=== PATIENT | female | born 1955 | race Caucasian/White ===

== ENCOUNTER → 2016-12-10 17:20 | Outpatient (CLI) | payer OTHER ==
[2016-03-14 14:23] VITALS: BMI 34.4
[~2016-12-10 17:20] MED LIST: ASPIRIN EC81 MG PO; CATAPRES0.1 MG; CATAPRES0.1 MG PO; DESERYL100 MG PO; DIOVAN320 MG; DYAZIDE 37.5/251 CAP; FLUTICASONE PRO16 GM; FOLIC ACID1 MG; HYDROCHLOROTHIA25 MG PO; IBUPROFEN800 MG PO; PLAVIX75 MG PO; PRILOSEC20 MG PO; TALWIN NX1 TAB; TENORMIN100 MG PO; TENORMIN50 MG PO; VITAMIN D31000 UNIT PO; ZETIA10 MG PO
== END | disposition home or self-care (01) ==
LOC: D.MAMMO 10:45
DX: Z12.31 Encounter for screening mammogram for malignant neoplasm of breast (principal)

== ENCOUNTER 2017-01-15 09:14 | Outpatient (CLI) | payer OTHER ==
[2016-03-14 14:23] VITALS: BMI 34.4
== END 2017-01-15 09:21 ==
LOC: D.MAMMO 09:14
DX: R92.8 Other abnormal and inconclusive findings on diagnostic imaging of breast (principal)

== ENCOUNTER → 2018-06-20 09:18 | Outpatient (CLI) | payer OTHER ==
[2016-03-14 14:23] VITALS: BMI 34.4
== END | disposition home or self-care (01) ==
LOC: D.MRI 09:18
DX: M75.122 Complete rotator cuff tear or rupture of left shoulder, not specified as traumatic (principal)

== ENCOUNTER 2018-07-07 08:00 | Outpatient (CLI) | payer OTHER ==
[2016-03-14 14:23] VITALS: BMI 34.4
== END 2018-07-07 09:00 | disposition home or self-care (01) ==
LOC: D.MAMMO 08:00
DX: Z12.31 Encounter for screening mammogram for malignant neoplasm of breast (principal)

== ENCOUNTER → 2018-08-08 08:58 | Outpatient (CLI) | payer OTHER ==
[2016-03-14 14:23] VITALS: BMI 34.4
== END | disposition home or self-care (01) ==
LOC: D.MRI 07-18 14:30
DX: S83.262A Peripheral tear of lateral meniscus, current injury, left knee, initial encounter (principal); X58.XXXA Exposure to other specified factors, initial encounter

== ENCOUNTER → 2019-06-02 07:57 | Outpatient (CLI) | payer OTHER ==
[2016-03-14 14:23] VITALS: BMI 34.4
== END | disposition home or self-care (01) ==
LOC: D.NM 07:57
PROVIDERS: ATTEND Internal Medicine Gastroenterology
DX: R10.9 Unspecified abdominal pain (principal); R14.0 Abdominal distension (gaseous)

== ENCOUNTER 2019-10-13 07:58 | Day surgery (SDC) | payer OTHER ==
[~2019-10-13] VITALS: Ht 170.2 cm; Wt 99.5 kg
--- NOTE | ~2019-10-13 | OP ---
PATIENT NAME: ALEJANDRO MOREIRA MEDICAL RECORD: [id number] :55 LOCATION:D.OPS ADMISSION DATE: SURGEON: GISSELLE NG MD DATE OF OPERATION: 10/13/2019 PREOPERATIVE DIAGNOSES: History of 2-3 cm ascending colon polyp, which was a serrated adenoma, which was tattooed. POSTOPERATIVE DIAGNOSES: 1. History of 2-3 cm ascending colon polyp, which was a serrated adenoma, which was tattooed. 2. Other diminutive polyps, all less than 9 mm in dimension. PROCEDURES: 1. Total colonoscopy to cecum. 2. Hot biopsy forceps polypectomies times 3. 3. Endoscopic ablation of 14 diminutive rectal polyps utilizing the [employer] aide. SURGEON: Gisselle Ng MD HUMAN RESOURCES TECHNICIAN: None. BLOOD LOSS: Minimal. ANESTHESIA: IV sedation. The risks, possible complications and alternatives to the procedure were explained to the patient. She elects to proceed. The discussion specifically included, but was not limited to, bleeding requiring emergency operation and endoscopic perforation. OPERATIVE COURSE: The patient was conveyed to endoscopy suite electively on 10/13/2019. IV sedation was induced by the anesthesia staff. The patient was placed in the High position. A digital rectal examination was performed. A colonoscope was inserted through the anus. It was advanced to the ileocecal valve. Upon withdrawal, I irrigated and aspirated extensively. I dragged the folds. I noted what appeared to be a polyp on a fold between 2 tattoos in the ascending colon. After biopsying this polyp with a cold endoscopic biopsies, I then utilized the [employer] aide with the right colon setting in the forced mode to ablate the remaining polypoid tissue. I continued to withdraw the endoscope. The pullback was greater than a 30-minute pullback. Two more polyps were removed in their entireties utilizing the hot biopsy forceps polypectomy technique. I utilized a combination of normal imaging and narrow band imaging. 14 diminutive rectal polyps were noted and these were too small I think even to biopsy. These were ablated in their entireties utilizing the [employer] aide with the right colon setting in the forced mode. A retroflexed view was obtained in the rectum. I then unretroflexed the scope and removed it under direct vision. I will see the patient in my office in 2-3 weeks. I will plan for her next colonoscopy to take place in 2 years. OPERATIVE REPORT [id number] ALEJANDRO MOREIRA TRANSINT:[id number] Voice Confirmation ID: [id number] DOCUMENT ID: [id number] GISSELLE NG MD CC: CLAUDIA LIRIANO TAUTH, JEFFREY and RASHAD BULLOCK DO [id number] DICTATION DATE: 10/13/19 1222 TRACK BROOM OPERATOR: 10/13/19 1853 [facility] [place] 10/13/19 [place] [id number] [place] [id number]
[2019-10-13 08:24] LABS: HEMATOCRIT 40.1 % (36.0-48.0); HEMOGLOBIN 13.6 g/dL (12-16); MCH 30.6 pg (26.0-34.0); MCHC 33.9 g/dL (31.0-37.0); MCV 90.3 fL (80.0-100.0); MEAN PLATELET VOLUME 9.9 fL (7.4-10.4); RBC 4.44 10x6/uL (4.00-5.40); RDW 12.5 % (11.5-14.5); WBC 6.8 10x3/uL (4.8-10.8)
[2019-10-13 08:33] LABS: INR 1.04 (0.85-1.17); PROTIME 13.5 SECONDS (11.6-15.0)
[2019-10-13 08:34] LABS: APTT 27.4 SECONDS (22.8-39.4)
[2019-10-13 08:37] LABS: ALBUMIN 3.7 g/dL (3.4-5.0); ANION GAP 12.3 mmol/L (8-16); BILIRUBIN - TOTAL 0.48 mg/dL (0.2-1.3); CALCIUM 9.4 mg/dL (8.5-10.1); POTASSIUM - SERUM 4.3 mmol/L (3.5-5.1)
[2019-10-13] MEDS ORDERED: COREG 3.1253.125 MG PO (09:30)
[2019-10-13 09:33] VITALS: Ht 170.2 cm; Wt 99.5 kg
--- NOTE | 2019-10-13 12:57 | NUR ---
DC INSTRUCTIONS GIVEN TO PT/SPOUSE. STATE UNDERSTANDING. DC'D IV CATH FULLY INTACT.
--- NOTE | 2019-10-13 13:12 | NUR ---
PT LEFT UNIT VIA WC AT 1307
--- NOTE | 2019-10-13 14:24 | HP ---
PATIENT: ALEJANDRO MOREIRA MEDICAL RECORD: [id number] ACCOUNT: [id number] LOCATION:D.OPS : 55 ADMISSION DATE: 10/13/19 PCP: CLAUDIA LIRIANO MD HISTORY AND PHYSICAL EXAMINATION PRINCIPAL DIAGNOSIS: Colon polyp. HISTORY OF PRESENT ILLNESS: The patient has a complex colon polyp in the ascending colon. This is a 2 to 3 cm polyp that is a serrated adenoma. It has been tattooed. We have obtained cardiac clearance through Dr. Orta. The risks, possible complications and alternatives to the procedure were explained to the patient. She elects to proceed. PAST MEDICAL AND SURGICAL HISTORY: Hypercholesterolemia, coronary stents, coronary artery disease, hypertension. SOCIAL HISTORY: She does smoke. REVIEW OF SYSTEMS: Negative for diabetes or thyroid problems. ALLERGIES: Please see the anesthesia sheet. HOME MEDICINES: Please see anesthesia sheet. PHYSICAL EXAMINATION: GENERAL: The patient does not appear acutely ill. She does not appear chronically ill. VITAL SIGNS: Reviewed. EARS: External ears appear normal. EYES: Extraocular movements are intact. NECK: Trachea is midline. CHEST: No intercostal retractions. PULMONARY: Nonlabored, no stridor. IMPRESSION: A 2 to 3 cm ascending colon polyp, which is a tattooed serrated adenoma. PLAN: Colonoscopy with polypectomy. TRANSINT:[id number] Voice Confirmation ID: [id number] DOCUMENT ID: [id number] GISSELLE NG MD at 1424 CC: CLAUDIA LIRIANO TAUTH, JEFFREY and RASHAD BULLOCK DO [id number] DICTATION DATE: 10/13/19 1119 ADVANCED DEVELOPER: 10/13/19 1210 [facility] 10/13/19 [facility] [address] [place] [address]
== END 2019-10-13 13:07 | disposition home or self-care (01) ==
LOC: D.OPS 07:58
PROVIDERS: Anesthesiology; ATTEND Surgery
DX: Z86.010 Personal history of colon polyps (principal); K63.5 Polyp of colon

== ENCOUNTER 2020-10-18 10:00 | Outpatient (CLI) | payer MEDICARE, OTHER ==
[2019-10-13 09:33] VITALS: BMI 34.4
[~2020-10-18 10:00] MED LIST changes: +COREG 3.1253.125 MG PO
== END 2020-10-18 10:30 | disposition home or self-care (01) ==
LOC: D.MAMMO 10:00
PROVIDERS: ATTEND Emergency Medicine
DX: Z12.31 Encounter for screening mammogram for malignant neoplasm of breast (principal)

== ENCOUNTER 2020-12-17 01:30 | Emergency (ER) | payer MEDICARE, OTHER ==
[~2020-12-17] VITALS: Ht 170.2 cm; Wt 100.0 kg
[2020-12-17 01:34] VITALS: Ht 170.2 cm; Wt 100.0 kg
[2020-12-17] MEDS ORDERED: TALWIN NX1 TAB PO (02:06)
[2020-12-17 02:57] VITALS: BP 165/60
== END 2020-12-17 02:47 | disposition home or self-care (01) ==
LOC: D.ER 01:30
DX: M75.101 Unspecified rotator cuff tear or rupture of right shoulder, not specified as traumatic (principal); M25.511 Pain in right shoulder; G62.9 Polyneuropathy, unspecified; K21.9 Gastro-esophageal reflux disease without esophagitis; N18.9 Chronic kidney disease, unspecified; I12.9 Hypertensive chronic kidney disease with stage 1 through stage 4 chronic kidney disease, or unspecified chronic kidney disease

== ENCOUNTER → 2020-12-22 07:31 | Outpatient (CLI) | payer MEDICARE, OTHER ==
[2020-12-17 01:34] VITALS: BMI 34.5
[~2020-12-22 07:31] MED LIST changes: +TALWIN NX1 TAB PO
== END | disposition home or self-care (01) ==
LOC: D.MRI 07:31
PROVIDERS: ATTEND Clinical Nurse Specialist Family Health
DX: M25.519 Pain in unspecified shoulder (principal)